=== PATIENT | female | born 2000 | race Caucasian/White ===

== ENCOUNTER 2022-09-17 14:42 | Outpatient (REF) | payer BC, SELFPAY ==
[2022-09-17 17:18] LABS: Bacteria Few HPF (Negative); C & S Indicated? C&S Done As Ordered; Crystals Negative HPF (Negative); Epithelial Cells Many HPF (Negative); Mucus Moderate (Negative); RBC 0-2 HPF (0-2); WBC 0-2 HPF (0-5)
[2022-09-20 12:38] LABS: Chlamydia Result Negative (Negative); GC Result Negative (Negative)
== END 2022-09-17 14:43 | disposition home or self-care (01) ==
LOC: LBN 14:42
PROVIDERS: Visit Provider Physician Assistant Medical
DX: N89.8 Other specified noninflammatory disorders of vagina (principal)
CPT/HCPCS: 87491; 87591; 81015; 87086; 87480; 87510; 87660

== ENCOUNTER 2022-10-26 06:40 | Emergency (ER) | payer BC, SELFPAY ==
[2022-10-26 06:44] VITALS: BP 126/86; PULSE 71; RESP 22; TEMP 36.8; O2SAT 99
--- NOTE | 2022-10-26 07:03 | ED.GENADUL_ITS ---
Discharge Plan Discharge Details Chief Complaint: Abd Prob ED Provider: Sonu Garcia Home Meds and New Rx's Prescriptions: No Action medroxyprogesterone [Depo-Provera] 150 mg/mL Syringe 150 mg IM [id number] Medical Decision Making This is a 22-year-old female who presents from home complaining of 2 days of lower abdominal discomfort that she describes as cramping. She felt a low-grade subjective fever at home and was mildly nauseated. No emesis, no change to bowel movements. She states that she has recently had 1 month or so of vaginal spotting. She has had a regular menstrual period since starting the Depo-Meat Specialist a shot. She recently relocated to this area and has yet to establish primary or women's health care. She is afebrile and well-appearing, demonstrates mild suprapubic tenderness on exam. Differential diagnosis would include irregular menstrual period, menstrual cramps, fibroid, colitis or other bowel process. Patient IV access established, screening labs obtained. I will refer her for ultrasound. As it is change of shift patient will be signed out to the oncoming physician. Please see Dr. Ward's note regarding final impression and disposition. HPI General Mode of arrival: ambulatory . Date/Time Provider Initiated Documentation: 10/26/22 06:54 . Limitations to Documentation: no limitations . Information obtained by: patient . History of Present Illness 22 year old F presents to the emergency department with the chief complaint of Lower abdominal pain, described as moderate, and is localized to the abdomen. Patient reports no radiation. Patient started experiencing this day(s) and it has been constant. No relieving factors improve symptom(s), No exacerbating factors reported . Patient notes other (Vaginal spotting); denies fever/chills, loss of appetite and nausea/vomiting. Patient did receive the following treatments prior to arrival, none Related Data Home Medications Medication Instructions Recorded Confirmed medroxyprogesterone 150 mg/mL 150 mg IM [id number] 10/26/22 10/26/22 intramuscular syringe (Depo-Provera) Allergies Allergy/AdvReac Type Severity Reaction Status Date / Time amoxicillin Allergy Skin Rash Unverified 10/26/22 06:55 General Stated Complaint: Abd Prob MICH: 3 Review of Systems Narrative: Has irregular menstrual periods since starting Depo-Provera. Feels malaise. Recently relocated to this area. [facility] Social History Smoking/Tobacco Use Status: Never Smoking risk assessment performed?: Yes Alcohol Intake: current Alcohol Intake frequency: a few times a month Substance use type: does not use Do you feel safe at home: Yes Exam Narrative Exam Narrative: GEN: awake, alert, oriented 3. Pleasant, well groomed, interactive. HEAD: Normocephalic, atraumatic EYES: PERRL, EOMI NECK: Full ROM, no CIRSTHIAN, no menigismus CHEST/RESP: Nontender, clear to auscultation bilateral, no wheeze/rhonchi/rales CARDIOVASCULAR: RRR, no murmur, rub justa. 2+ Rad pulse bilateral ABDOMEN: Soft, mild suprapubic tenderness without rebound or guarding, no mass. +Bowel sounds EXT: Full ROM, no edema, no rash Neuro: Grossly normal neurologic exam, conversant, interactive. Psych: Speech fluent, thoughts congruent, affect normal Course Vital Signs Vital signs: Vital Signs Temperature 36.8 C 10/26/22 06:44 Pulse 71 10/26/22 06:44 Respiratory Rate 22 10/26/22 06:44 Blood Pressure 126/86 10/26/22 06:44 Pulse Oximetry 99 10/26/22 06:44 Temperature 36.8 C 10/26/22 06:44 Temperature Source Oral 10/26/22 06:44 Pulse 71 10/26/22 06:44 Respiratory Rate 22 10/26/22 06:44 Respiratory Effort Normal 10/26/22 06:51 Blood Pressure 126/86 10/26/22 06:44 Blood Pressure Position Sitting 10/26/22 06:44 Pulse Oximetry 99 10/26/22 06:44 Oxygen Delivery Method Room Air 10/26/22 06:44 Oxygen Flow Rate 0 10/26/22 06:44 Pain Level 4 10/26/22 06:44
[2022-10-26 07:07] LABS: Abs Immature Grans 0.03 10^3/uL (0.0-0.06); Absolute Basophil Count 0.03 10^3/uL (0.0-0.2); Absolute Eosinophil Count 0.16 10^3/uL (0.0-0.7); Absolute Lymphocyte Count 2.55 10^3/uL (1.2-3.4); Absolute Monocyte Count 0.57 10^3/uL (0.1-0.8); Basophils % 0.4; Eosinophils % 2.2; HCT 48.2 % (36.0-46.0); HGB 15.3 g/dL (11.2-15.7); Immature Grans % 0.4; Lymphocytes % 35.7; MCH 29.1 pg (27.0-33.0); MCHC 31.7 % (32.0-36.0); MCV 92 fL (80-95); MPV 10.8 fL (8.0-11.0); Neutrophils % 53.3; Platelet Count 171 10^3/uL (130-400); RBC 5.26 10^6/uL (3.93-5.22); RDW 12.5 % (11.7-14.6); RDW-SD 42.5 fL; WBC 7.14 10^3/uL (4.4-10.8)
[2022-10-26 07:14] LABS: Bilirubin Negative (Negative); Blood Large (Negative); Clarity Clear (Clear); Glucose Negative (Negative); Ketones Negative (Negative); Leukocyte Esterase Trace (Negative); Nitrite Negative (Negative); Specific Gravity >= 1.030 (1.005-1.025)
[2022-10-26] MEDS: Ketorolac 15 MG/ML VIAL IVP (07:20)
[2022-10-26 07:25] LABS: ALT 37 U/L (14-59); AST 20 U/L (15-37); Albumin 4.4 g/dL (3.4-5.0); Alkaline Phosphatase 64 U/L (46-116); Anion Gap 8.5 mmol/L (3-11); BUN 13 mg/dL (7-18); Bilirubin, Total 0.6 mg/dL (0.2-1.0); CO2 27.5 mmol/L (21.0-32.0); CREATININE 0.9 mg/dL (0.55-1.02); Calcium 9.3 mg/dL (8.5-10.1); Chloride 106 mmol/L (98-107); Estimated GFR 92.12 (mL/min/1.73m2); Glucose 110 mg/dL (74-106); Magnesium 2.1 mg/dL (1.8-2.4); Potassium 3.7 mmol/L (3.5-5.1); Sodium 142 mmol/L (136-145); Total Protein 8.6 g/dL (6.4-8.2)
[2022-10-26 07:28] LABS: Bacteria Moderate HPF (Negative); C & S Indicated? Yes; Casts Negative LPF (Negative); Crystals Negative HPF (Negative); Epithelial Cells Few HPF (Negative); Mucus Negative (Negative); Other Cells Negative (Negative)
--- NOTE | 2022-10-26 07:35 | DI.US_ITS ---
Exam(s) US PELVIS TRANSVAGINAL EXAM: US PELVIS TRANSVAGINAL CLINICAL HISTORY: lower abdominal pain. TECHNIQUE: Transabdominal and transvaginal pelvic ultrasound was performed using standard protocol. COMPARISON: No exams were available for comparison FINDINGS: UTERUS: Position: Anteverted. Size: 7.2 long by 3.8 AP by 4.3 transverse cm Endometrium: 0.5 cm. Normal for patient's menstrual status. There is a trace amount of free fluid in the endometrial canal. Myometrium: Unremarkable. Cervix: Unremarkable. OVARIES: Right: 3.4 x 1 x 2.1 cm Cyst or mass: No suspicious cystic or solid masses. Left: 3.5 x 2.7 x 2.1 cm Cyst or mass: No suspicious cystic or solid masses. No suspicious adnexal masses are seen. DOPPLER: Color: Symmetric and uniform flow to both ovaries. CUL-DE-SAC: Free fluid: None. Other: None. IMPRESSION: 1. Normal-appearing uterus with endometrial stripe within normal limits. 2. No evidence of an intrauterine or evidence to suggest an ectopic . 3. Unremarkable bilateral ovaries. 4. Findings were discussed with the emergency department at 8:53 a.m. on 10/26/2022. DATA REPOSITORY:
--- NOTE | 2022-10-26 08:30 | W.EDPROG ---
Date of service: 10/26/22 Time of Service: 08:30 Medical Decision Making Care was signed out by Dr. Garcia with plan to follow-up on ultrasound. Ultrasound was negative per identification technician. Patient was reassessed. She has no focal right lower quadrant abdominal tenderness. She does note mild discomfort on deep palpation of suprapubic bilaterally. I called and spoke with Dr. Harris and discussed ED presentation and course, she does agree with timely follow-up and will help arrange this. I will cover for urinary tract infection based on Dr. Garcia's recommendation. Plan to start nitrofurantoin. Discussed all results with the patient and plan for discharge to follow-up with [facility]. Disposition decision was made weighing the risks and benefits of hospitalization versus outpatient treatment, the risk for further decompensation, and the patient's wishes. The patient was stable and requested discharge. Prior to discharge, my usual and customary return precautions were reviewed with the patient - this included follow-up instructions and reason to return to the emergency department if condition worsens, does not improve as expected, or other new concerns arise. Lab Data Lab results reviewed: Yes I reviewed the patient's lab results. Labs: 10/26/22 07:01 Urine - Reflex from Ua Urine Culture - Pending Laboratory Tests Range/Units 10/26/22 10/26/22 10/26/22 06:59 06:59 07:01 WBC (4.4-10.8) 10^3/uL 7.14 RBC (3.93-5.22) 10^6/uL 5.26 H Hgb (11.2-15.7) g/dL 15.3 Hct (36.0-46.0) % 48.2 H MCV (80-95) fL 92 MCH (27.0-33.0) pg 29.1 MCHC (32.0-36.0) % 31.7 L RDW (11.7-14.6) % 12.5 Plt Count (130-400) 10^3/uL 171 MPV (8.0-11.0) fL 10.8 Immature Gran % 0.4 Neutrophils % 53.3 Lymphocytes % 35.7 Monocytes % 8.0 Eosinophils % 2.2 Basophils % 0.4 Nucleated RBC % (0.0-0.3) % 0.0 Absolute Neutrophils (1.2-6.7) 10^3/uL 3.80 Absolute Lymphocytes (1.2-3.4) 10^3/uL 2.55 Absolute Monocytes (0.1-0.8) 10^3/uL 0.57 Absolute Eosinophils (0.0-0.7) 10^3/uL 0.16 Absolute Basophils (0.0-0.2) 10^3/uL 0.03 Sodium (136-145) mmol/L 142 Potassium (3.5-5.1) mmol/L 3.7 Chloride (98-107) mmol/L 106 Carbon Dioxide (21.0-32.0) mmol/L 27.5 Anion Gap (3-11) mmol/L 8.5 BUN (7-18) mg/dL 13 Creatinine (0.55-1.02) mg/dL 0.9 Est GFR (CKD-EPI 2020) (mL/min/1.73m2) 92.12 Glucose (74-106) mg/dL 110 H Calcium (8.5-10.1) mg/dL 9.3 Magnesium (1.8-2.4) mg/dL 2.1 Total Bilirubin (0.2-1.0) mg/dL 0.6 AST (15-37) U/L 20 ALT (14-59) U/L 37 Alkaline Phosphatase (46-116) U/L 64 Total Protein (6.4-8.2) g/dL 8.6 H Albumin (3.4-5.0) g/dL 4.4 Urine Color (Yellow) Yellow Urine Clarity (Clear) Clear Urine pH (5-8) 6.0 Ur Specific Luther (1.005-1.025) >= 1.030 H Urine Protein (Negative) mg/dL Negative Urine Ketones (Negative) mg/dL Negative Urine Blood (Negative) Large H Urine Nitrite (Negative) Negative Urine Bilirubin (Negative) Negative Urine Urobilinogen (Up to 0.2) mg/dL 1.0 H Ur Leukocyte Esterase (Negative) Trace H Urine RBC (0-2) HPF 10-20 H Urine WBC (0-5) HPF 3-5 Ur Epithelial Cells (Negative) HPF Few Urine Crystals (Negative) HPF Negative Urine Bacteria (Negative) HPF Moderate Urine Casts (Negative) LPF Negative Urine Mucus (Negative) Negative Urine Other (Negative) Negative Ur Culture Indicated? Yes Urine Glucose (Negative) mg/dL Negative Discharge Plan Disposition Patient Disposition: Home Condition: Stable Discharge Details Clinical Impression: Pelvic cramping, Irregular menstrual bleeding, UTI (urinary tract infection) ED Provider: Miguel Ward Home Meds and New Rx's Prescriptions: New nitrofurantoin monohyd/m-cryst [Macrobid] 100 mg capsule 100 mg PO BID Qty: 9 0RF Rx Instructions: must administer with a meal/food Continued medroxyprogesterone [Depo-Provera] 150 mg/mL Syringe 150 mg IM [id number] Discharge Instructions Instructions: Urinary Tract Infection in Women (ED) Additional Instructions: Please follow-up with [facility]. Call to schedule an appointment. Please take full course of antibiotic as prescribed for potential early urinary tract infection. Return to the ER immediately for any worsening or new concerning symptoms. Referrals: [facility] [Provider Group]
[2022-10-26] MEDS: MacroBID 100 MG CAP PO (08:53)
[2022-10-26 08:57] VITALS: BP 120/60; PULSE 54; RESP 16; TEMP 36.7; O2SAT 98
--- NOTE | 2022-10-26 17:14 | NUR.NOTE ---
Nursing Note: Referral given to Care Management for needs PCP, follow up/ KARI.
== END 2022-10-26 08:59 | disposition home or self-care (01) ==
LOC: ER 09:17
PROVIDERS: Emergency Medicine; Emergency Provider Student in an Organized Health Care Education/Training Program; PCP Registered Nurse Critical Care Medicine
DX: R10.30 Lower abdominal pain, unspecified (principal); R50.9 Fever, unspecified; R11.0 Nausea
CPT/HCPCS: 80053; 96361; 96374; 99284; 76830; 76856; 81003; 81015; 83735; 85025; 87086; J1885